=== PATIENT | male | born 1990 | race African-American/Black ===

== ENCOUNTER 2017-11-07 07:00 | Emergency (ER) | payer SELFPAY ==
[~2017-11-07] VITALS: Ht 162.6 cm; Wt 86.7 kg
[2017-11-07] MEDS ORDERED: IBUPROFEN 600MG TABLET PO ONE (07:45)
[2017-11-07 08:08] VITALS: BP 119/88
== END 2017-11-07 08:13 | disposition home or self-care (01) ==
LOC: ER 07:00
DX: R51 Headache (principal); F17.200 Nicotine dependence, unspecified, uncomplicated
CPT/HCPCS: 99283

== ENCOUNTER 2021-09-02 07:58 | Emergency (ER) | payer MEDICAID ==
[~2021-09-02] VITALS: Ht 162.6 cm; Wt 89.0 kg
[2021-09-02 08:27] VITALS: BP 147/82
[2021-09-02] MEDS ORDERED: KETOROLAC 60MG/2ML VIAL IM ONE (08:30)
[2021-09-02] MEDS ORDERED: TRAM50TA3 MT (09:19)
[2021-09-02] MEDS ORDERED: IBUP-2030 MT (09:19)
== END 2021-09-02 14:00 | disposition home or self-care (01) ==
LOC: ER 07:58
DX: R51.9 Headache, unspecified (principal); M54.50 Low back pain, unspecified
CPT/HCPCS: 96372; 99283; J1885

== ENCOUNTER 2021-12-24 16:32 | Emergency (ER) | payer MEDICAID, OTHER ==
[~2021-12-24] VITALS: Ht 162.6 cm; Wt 84.0 kg
[~2021-12-24 16:32] MED LIST: IBUP-2030 MT; TRAM50TA3 MT
[2021-12-24 16:44] VITALS: BP 135/89
[2021-12-24] MEDS ORDERED: NAPR-681 MT (17:49)
== END 2021-12-24 17:56 | disposition home or self-care (01) ==
LOC: ER 16:32
DX: M79.641 Pain in right hand (principal)
CPT/HCPCS: 73130; 99283

== ENCOUNTER 2021-12-30 12:51 | Emergency (ER) | payer OTHER ==
[~2021-12-30] VITALS: Ht 165.1 cm; Wt 88.0 kg
[~2021-12-30 12:51] MED LIST changes: +NAPR-681 MT
[2021-12-30] MEDS ORDERED: NAPR-1176 MT (15:07)
[2021-12-30] MEDS ORDERED: CYCL10TA21 MT (15:07)
[2021-12-30 15:51] VITALS: BP 122/76
== END 2021-12-30 15:51 | disposition home or self-care (01) ==
LOC: ER 12:51
DX: M79.641 Pain in right hand (principal); M54.50 Low back pain, unspecified
CPT/HCPCS: 29125; 99283

== ENCOUNTER 2022-01-01 12:48 | Emergency (ER) | payer OTHER ==
[~2022-01-01] VITALS: Ht 162.6 cm; Wt 82.0 kg
[~2022-01-01 12:48] MED LIST changes: +CYCL10TA21 MT; +NAPR-1176 MT
[2022-01-01 13:12] VITALS: BP 146/93
== END 2022-01-01 15:30 | disposition home or self-care (01) ==
LOC: ER 13:12
DX: M25.531 Pain in right wrist (principal)
CPT/HCPCS: 99281

== ENCOUNTER 2024-09-16 19:53 | Emergency (ER) | payer OTHER ==
[~2024-09-16] VITALS: Ht 162.6 cm; Wt 83.0 kg
[2024-09-16 20:22] VITALS: BP 128/98; PULSE 98; RESP 15; TEMP 36.7; O2SAT 99
[2024-09-16] MEDS ORDERED: NAPR-1486 MT (20:44)
[2024-09-16] MEDS: NAPROXEN 250MG TABLET PO ONE (20:58)
== END 2024-09-16 21:10 | disposition home or self-care (01) ==
LOC: ER 19:53
DX: K08.89 Other specified disorders of teeth and supporting structures (principal); Z79.1 Long term (current) use of non-steroidal anti-inflammatories (NSAID); Z79.899 Other long term (current) drug therapy
CPT/HCPCS: 99282

== ENCOUNTER 2025-06-06 08:37 | Emergency (ER) | payer OTHER ==
[~2025-06-06] VITALS: Ht 172.7 cm; Wt 85.0 kg
[~2025-06-06 08:37] MED LIST changes: +NAPR-1486 MT
[2025-06-06 08:41] VITALS: O2SAT 97
[2025-06-06 08:44] VITALS: BP 139/94; PULSE 96; RESP 18; TEMP 36.7; O2SAT 98
[2025-06-06] MEDS: IBUPROFEN 600MG TABLET PO ONE (09:52)
[2025-06-06 10:00] LABS: BASOPHILS % 0.2 % (0.0-2.0); EOSINOPHILS % 0.1 % (0.0-5.0); HEMATOCRIT. 48.7 % (42.0-52.0); HEMOGLOBIN. 15.8 g/dL (14.0-18.0); LYMPHOCYTES % 16.2 % (20.0-50.0); MEAN PLATELET VOLUME 7.6 fl (7.4-10.4); MONOCYTES % 8.0 % (2.0-8.0); NEUTROPHILS % 75.5 % (40.0-76.0); PLATELET 258 x1000/uL (130-400); RED BLOOD CELL COUNT 5.37 mill/uL (4.7-6.1); RED CELL DISTRIBUTION WIDTH 12.9 % (11.6-14.6)
[2025-06-06 10:16] LABS: CREATININE 1.2 mg/dL (0.6-1.3); UREA NITROGEN BLOOD 10 mg/dL (9-23)
[2025-06-06 10:44] LABS: TROPONIN I HIGH SENSITIVITY 84 ng/L (3.0-53)
[2025-06-06] MEDS ORDERED: ASPIRIN 81MG TABLET PO ONE (11:00)
[2025-06-06] MEDS ORDERED: NITROGLYCERIN 0.4MG TABLET SL SL ONE (11:00)
== END 2025-06-06 14:01 | disposition left against medical advice (07) ==
LOC: ER 08:46 → CANBEDREQ 12:33 → ER 14:01
DX: R07.89 Other chest pain (principal); I21.4 Non-ST elevation (NSTEMI) myocardial infarction; F17.210 Nicotine dependence, cigarettes, uncomplicated; F10.90 Alcohol use, unspecified, uncomplicated; Z55.6 Problems related to health literacy; Z79.1 Long term (current) use of non-steroidal anti-inflammatories (NSAID); Y90.9 Presence of alcohol in blood, level not specified
CPT/HCPCS: 36415; 71045; 80048; 84484; 85025; 93005; 99285